=== PATIENT | female | born 1980 | race Caucasian/White ===

== ENCOUNTER 2017-07-16 14:35 | Inpatient (IN) | payer MEDICAID ==
[2017-07-16] MEDS ORDERED: AMPICILLIN 2 GM/NS (PMX) 100 ML (14:46)
[2017-07-16 14:59] LABS: ADD MAN DIFF? NO
[2017-07-16] MEDS ORDERED: OXYTOCIN 30 UNITS/LR 500 ML IV ×2 (15:00→18:00)
[2017-07-16] MEDS ORDERED: IBUPROFEN 600 MG TAB PO (15:00)
[2017-07-16] MEDS ORDERED: CARBOPROST 250 MCG INJ IM ×2 (15:00→18:00)
[2017-07-16] MEDS ORDERED: MISOPROSTOL 200 MCG TAB PR ×2 (15:00→18:00)
[2017-07-16] MEDS ORDERED: LIDOCAINE 1% (MPF) 30 ML INJ INJ (15:00)
[2017-07-16] MEDS ORDERED: METHYLERGONOVINE 0.2 MG INJ IM ×2 (15:00→18:00)
[2017-07-16] MEDS ORDERED: BUTORPHANOL 2 MG INJ IV (15:00)
[2017-07-16] MEDS: AMPICILLIN 2 GM/NS (PMX) 100 ML IV (15:08)
[2017-07-16] MEDS: LACTATED RINGER'S 1,000 ML IV (15:08)
[2017-07-16 15:17] LABS: BASOPHILS % 0.2 % (0.0-2.0); EOSINOPHILS % 0.1 % (0.0-7.0); HEMATOCRIT 37.8 % (37.0-47.0); HEMOGLOBIN 12.8 g/dl (12.0-16.0); LYMPHOCYTES # 1.7 10^3/ul (0.8-2.9); LYMPHOCYTES % 16.4 % (15.0-51.0); MEAN CORPUSCULAR HEMOGLOBIN 28.4 pg (29.0-33.0); MEAN CORPUSCULAR HGB CONC 33.9 g/dl (32.0-37.0); MEAN PLATELET VOLUME 11.1 fl (7.4-10.4); MONOCYTE # 0.4 10^3/ul (0.3-0.9); MONOCYTES % 4.3 % (0.0-11.0); NEUTROPHIL # 7.9 10^3/ul (1.6-7.5); NEUTROPHILS % 78.5 % (39.0-77.0); PLATELET COUNT 235 10^3/UL (140-415); RED CELL DISTRIBUTION WIDTH 13.1 % (11.5-14.5)
[2017-07-16 15:17] LABS: WHITE BLOOD COUNT 10.1 10^3/ul (4.8-10.8)
[2017-07-16 15:28] LABS: INR 0.88; PT RATIO 0.9
[2017-07-16 15:29] LABS: PARTIAL THROMBOPLASTIN TIME 24.6 Sec (25.0-35.0)
[2017-07-16 15:57] LABS: HEPATITIS B SURFACE ANTIGEN NEGATIVE (NEGATIVE)
[2017-07-16] MEDS: OXYTOCIN 30 UNITS/LR 500 ML IV ×2 (16:57→17:09)
[2017-07-16] MEDS: LACTATED RINGER'S 1,000 ML IV* (17:42)
[2017-07-16] MEDS: MINERAL OIL LIGHT 10 ML VIAL TOP (17:47)
[2017-07-16] MEDS ORDERED: ZOLPIDEM 5 MG TAB PO (18:00)
[2017-07-16] MEDS ORDERED: HYDROCODONE/APAP (5/325) TAB PO ×2 (18:00)
[2017-07-16] MEDS: IBUPROFEN 600 MG TAB PO (18:50)
[2017-07-16] MEDS ORDERED: AMPICILLIN 1 GM/NS (PMX) 50 ML IV (19:00)
[2017-07-16] MEDS: WITCH HAZEL/GLYCERIN PAD PR (21:07)
[2017-07-16] MEDS: BENZOCAINE 20% 56 ML SPRAY TOP (21:07)
[2017-07-16] MEDS: SENNA/DOCUSATE NA (8.6MG/50MG) TAB PO (21:07)
[2017-07-16] MEDS: MAGNESIUM HYDROXIDE 30ML CUP PO (21:07)
[2017-07-16] MEDS: DIBUCAINE 1% 30 GM OINT PR (21:08)
[2017-07-16] MEDS: LANOLIN 7 GM TUBE TOP (21:08)
[2017-07-17] MEDS: IBUPROFEN 600 MG TAB PO ×5 (00:06→23:23)
[2017-07-17] MEDS: LACTATED RINGER'S 1,000 ML IV* (01:42)
[2017-07-17 08:52] LABS: ADD MAN DIFF? NO
[2017-07-17 08:56] LABS: WHITE BLOOD COUNT 9.7 10^3/ul (4.8-10.8)
[2017-07-17 08:56] LABS: BASOPHILS % 0.2 % (0.0-2.0); EOSINOPHILS % 0.3 % (0.0-7.0); HEMATOCRIT 34.2 % (37.0-47.0); HEMOGLOBIN 11.6 g/dl (12.0-16.0); LYMPHOCYTES % 20.1 % (15.0-51.0); MEAN CORPUSCULAR HEMOGLOBIN 28.2 pg (29.0-33.0); MEAN CORPUSCULAR HGB CONC 33.9 g/dl (32.0-37.0); MEAN CORPUSCULAR VOLUME 83.2 fl (82.0-101.0); MEAN PLATELET VOLUME 11.3 fl (7.4-10.4); MONOCYTE # 0.6 10^3/ul (0.3-0.9); MONOCYTES % 6.3 % (0.0-11.0); NEUTROPHIL # 7.1 10^3/ul (1.6-7.5); NEUTROPHILS % 72.7 % (39.0-77.0); PLATELET COUNT 213 10^3/UL (140-415); RED BLOOD COUNT 4.11 10^6/ul (4.20-5.40); RED CELL DISTRIBUTION WIDTH 13.1 % (11.5-14.5)
[2017-07-17] MEDS: MAGNESIUM HYDROXIDE 30ML CUP PO ×2 (09:13→21:42)
[2017-07-17] MEDS: SENNA/DOCUSATE NA (8.6MG/50MG) TAB PO ×2 (09:13→21:42)
[2017-07-18] MEDS: IBUPROFEN 600 MG TAB PO ×2 (05:47→12:17)
[2017-07-18] MEDS: SENNA/DOCUSATE NA (8.6MG/50MG) TAB PO (08:54)
[2017-07-18] MEDS: MAGNESIUM HYDROXIDE 30ML CUP PO (08:54)
[2017-07-18] MEDS: DIPHTH/TET/ACEL PERTUSS (ADULT) 0.5 ML VIAL IM* (08:56)
[2017-07-18] MEDS: MEASLES,MUMPS,RUBELLA VACCINE INJ SC* (08:56)
[2017-07-18] MEDS: VARICELLA VACCINE LIVE/PF 1,350 UNIT/0.5 ML ML SC* (08:57)
[2017-07-18 15:06] LABS: RAPID PLASMA REAGIN NONREACTIVE (NR)
== END 2017-07-18 16:30 | disposition home or self-care (01) | DRG 775 ==
LOC: L-D 14:35 → PP1 17:49
PROVIDERS: Obstetrics & Gynecology
PROC: 10E0XZZ Delivery of Products of Conception, External Approach (ICD-10-PCS; principal; 2017-07-16)
DX: O80 Encounter for full-term uncomplicated delivery (principal); Z3A.38 38 weeks gestation of pregnancy; Z37.0 Single live birth
CPT/HCPCS: 85025; 85610; 85730; 86592; 86850; 86900; 86901; 87340